=== PATIENT | female | born 1985 | race African-American/Black ===

== ENCOUNTER 2017-05-12 10:40 | Emergency (ER) | payer OTHER ==
[2014-12-12 11:14] VITALS: BP 116/71
[~2017-05-12 10:40] MED LIST: METF-620 PO
[2017-05-12] MEDS ORDERED: ACET325T9 PO (11:05)
[2017-05-12] MEDS ORDERED: NAPR500T PO (11:05)
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
[2017-05-12] MEDS ORDERED: KETOROLAC 60 MG/2 ML INJ. IM ONE (11:30)
[2017-05-12] MEDS ORDERED: DEXAMETHASONE SOD PHOS 20 MG/5 ML VIAL. IM ONE (11:30)
[2017-05-12] MEDS ORDERED: ACETAMINOPHEN 500 MG TABLET PO ONE (11:30)
[2017-05-12] MEDS ORDERED: PENICILLIN G BENZATHINE LA 1,200,000 UNIT/2 ML DISP.SYRIN. IM ONE (11:30)
== END 2017-05-12 11:45 | disposition home or self-care (01) ==
LOC: ER 10:40
DX: J02.9 Acute pharyngitis, unspecified (principal); R51 Headache; H92.09 Otalgia, unspecified ear; E28.2 Polycystic ovarian syndrome
CPT/HCPCS: 96372; 99284; J0561; J1100; J1885

== ENCOUNTER 2018-02-16 16:06 | Emergency (ER) | payer BC, OTHER ==
[2018-02-16] MEDS: PENICILLIN G BENZATHINE LA 1,200,000 UNIT/2 ML DISP.SYRIN. IM (16:48)
[2018-02-16] MEDS: NAPROXEN 500 MG TABLET PO (16:48)
[2018-02-17 07:39] LABS: NEGATIVE OBC STREP NEG; POSITIVE OBC STREP POS
== END 2018-02-16 17:05 | disposition home or self-care (01) ==
LOC: ER 16:06
DX: J02.0 Streptococcal pharyngitis (principal); H92.01 Otalgia, right ear; M54.2 Cervicalgia
CPT/HCPCS: 87880; 96372; 99283; J0561

== ENCOUNTER 2020-07-29 13:31 | Emergency (ER) | payer BC, OTHER ==
[2018-02-16 17:04] VITALS: BP 104/60
[~2020-07-29 13:31] MED LIST changes: +ACET325T9 PO; -METF-620 PO; +METF10007 PO; +NAPR-683 PO
== END 2020-07-29 15:07 | disposition left against medical advice (07) ==
LOC: ER 13:31
DX: T14.8XXA Other injury of unspecified body region, initial encounter (principal); X58.XXXA Exposure to other specified factors, initial encounter; Y93.89 Activity, other specified; Y92.89 Other specified places as the place of occurrence of the external cause; Y99.8 Other external cause status; Z53.21 Procedure and treatment not carried out due to patient leaving prior to being seen by health care provider